=== PATIENT | female | born 1975 | race Caucasian/White ===

== ENCOUNTER 2021-04-22 17:28 | Inpatient (IN) | payer BC, SELFPAY ==
[~2021-04-22] VITALS: Ht 157.5 cm; Wt 97.1 kg
[2021-04-22 18:04] VITALS: BP 106/71
--- NOTE | 2021-04-22 18:17 | NUR ---
46 Y/O F BIBA FROM HOME, PT HAS BEEN HAVING COVID LIKE SYMPTOMS, SOB, N&V, BLOOD IN EMESIS, LOSS OF APPETITE, AND PRODUCTIVE COUGH. 1 WEEK EXPOSURE TO COVID. SKIN IS PINK/WARM/DRY; AAOX4 WITH EVEN AND STEADY GAIT; LUNGS WHEEZING BL; HR EVEN AND TACHY; PATIENT STATES PAIN OF 0/10 AT THIS TIME; PATIENT POSITIONED FOR COMFORT; HOB ELEVATED; BEDRAILS UP X2; BED DOWN. ER MD MADE AWARE OF PT STATUS. PMH: ASTHMA, OAB, HERNIATED DISK, ANEMIA LMP: 04/16/21 ALLERGY: DENIES MED: ALBUTEROL 2X NO RELIEF, SINGULAIR, TROSPIUM
--- NOTE | 2021-04-22 18:18 | NUR ---
ANAYA WAS SWABBED AND GIVEN TO LILY PHLEB
--- NOTE | 2021-04-22 18:22 | NUR ---
REPLACED NC AND TITRATED TO 5L
[2021-04-22] MEDS ORDERED: ONDANSETRON 4 MG/2 ML VIAL ONE ×2 (18:32→22:21)
[2021-04-22] MEDS ORDERED: ONDANSETRON 4 MG/2 ML VIAL IVP ONE ×2 (18:50→22:25)
[2021-04-22 20:16] LABS: HEMATOCRIT 35.4 % (36-48); HEMOGLOBIN 11.1 g/dL (12.0-16.0); MEAN CORPUSCULAR HEMOGLOBIN 22 pg (27-31); MEAN CORPUSCULAR HGB CONC 32 g/dL (33-37); MEAN CORPUSCULAR VOLUME 68.4 fL (80-94); PLATELET COUNT (AUTO) 470 K/uL (140-450); RED BLOOD CELL COUNT(AUTO) 5.17 MIL/uL (4.20-5.40); RED CELL DISTRIBUTION WIDTH 17.4 % (11.6-13.7); WHITE BLOOD COUNT (AUTO) 9.9 K/uL (4.8-10.8)
[2021-04-22 20:36] LABS: LYMPHOCYTES % (MANUAL) 6 % (20-46); MONOCYTES % (MANUAL) 3 % (5-12)
[2021-04-22] MEDS ORDERED: DEXAMETHASONE 10 MG/ML VIAL IVP ONE (20:45)
[2021-04-22 20:55] LABS: LACTATE DEHYDROGENASE 520 U/L (81-234)
[2021-04-22 21:13] LABS: C-REACTIVE PROTEIN QUANT 17.8 mg/dL (0.0-0.9)
[2021-04-22] MEDS ORDERED: DEXAMETHASONE 10 MG/ML VIAL ONE ×2 (21:47→22:20)
[2021-04-22] MEDS ORDERED: MORPHINE SULFATE 4 MG/ML SYR ONE (22:21)
[2021-04-22] MEDS ORDERED: MORPHINE SULFATE 4 MG/ML SYR IVP ONE (22:25)
--- NOTE | 2021-04-22 22:33 | NUR ---
up 6lpm n/c. satting well. NAD at this time. pt currently a/o x 4, gcs 15.
[2021-04-22 22:49] LABS: PROTHROMBIN TIME 10.2 secs (10.8-13.4)
[2021-04-22 22:50] LABS: ALBUMIN 3.1 g/dL (3.4-5.0); ANION GAP 11.9 (8-16); CARBON DIOXIDE 28.1 mmol/L (21-32); CREATININE 0.9 mg/dL (0.6-1.3); TOTAL BILIRUBIN 0.8 mg/dL (0.0-1.0)
--- NOTE | 2021-04-23 00:26 | NUR ---
NAD at this time. pt currently sitting on high fowlers position. currently on her phone.
--- NOTE | 2021-04-23 01:19 | NUR ---
provided pt with bedside lacho
--- NOTE | 2021-04-23 02:31 | NUR ---
changed pt diaper at this time. observed 02sats dropping to 88-89% on 6lpm n/c. will reevaluate for high 02 concentration
[2021-04-23] MEDS ORDERED: cefTRIAXone 1,000 MG VIAL ONE (05:33)
[2021-04-23] MEDS ORDERED: AZITHROMYCIN 500 MG INJ VIAL IV ONE (06:23)
[2021-04-23] MEDS: AZITHROMYCIN 250 MG in DEXTROSE 5% 250 ML IV SCH (06:36)
--- NOTE | 2021-04-23 06:36 | NUR ---
observed pt to have decreased o2 in 82-84%. placed pt on 10lpm n/c. up to 93-94% now.
--- NOTE | 2021-04-23 07:30 | NUR ---
REPORT RECEIVED FROM ERUM VARNER FOR CONTINUITY OF CARE. PT IS A&OX4. ON 10L NON REBREATHER O2 SATURATION 97%. SR ON MONITOR. IV SITE RT UPPER ARM 18G INFUSING NS AT 60ML/HR AND LT UPPER ARM 20G, SALINE LOCKED, INTACT, PATENT, GOOD BLOOD RETURN. SKIN INTACT, WARM AND DRY. SAFETY PRECAUTIONS IN PLACE. CALL LIGHT WITHIN REACH. WILL CONTINUE TO MONITOR.
[2021-04-23] MEDS ORDERED: MAG SULF 2000 MG/WATER PREMIX 50 ML IV PRN (08:40)
[2021-04-23] MEDS ORDERED: POTASSIUM CHLORIDE 10 MEQ TABER PO PRN (08:40)
[2021-04-23] MEDS ORDERED: ALBUTEROL HFA MDI 90 MCG/ACTUATION 8 GM INH PRN (08:40)
[2021-04-23] MEDS ORDERED: LORazepam 2 MG/ML VIAL IM/IVP PRN (08:50)
[2021-04-23] MEDS ORDERED: DOCUSATE SODIUM 100 MG GELCAP PO PRN (08:50)
[2021-04-23] MEDS ORDERED: ZOLPIDEM 5 MG TAB PO PRN (08:50)
--- NOTE | 2021-04-23 09:00 | NUR ---
PT REPROTS 11/22 PAIN. TYLENOL PRN GIVEN. DIAPER SOILED. CLEANED, CHANGED AND REPOSITIONED.
[2021-04-23] MEDS: NACL 0.9% 1,000 ML IV SCH ×2 (09:10→12:18)
[2021-04-23] MEDS: ZINC SULF 220 MG CAP PO SCH ×2 (09:11→21:36)
[2021-04-23] MEDS: VITAMIN D 400 IU TAB PO SCH (09:11)
[2021-04-23] MEDS: ASCORBIC ACID 500 MG TAB PO SCH (09:11)
[2021-04-23] MEDS: ACETAMINOPHEN 325 MG TAB PO PRN ×2 (09:37→21:36)
[2021-04-23 10:24] LABS: PROTHROMBIN TIME 10.1 secs (10.8-13.4)
[2021-04-23 10:35] LABS: CHOL/HDL RATIO 3.8 (1-4.5); THYROID STIMULATING HORMONE 0.64 uIU/mL (0.34-3.74)
--- NOTE | 2021-04-23 11:00 | NUR ---
Patient awake, appears to be resting comfortably in bed. Vital Signs within normal limits. Respirations even and unlabored. Will continue to monitor.
[2021-04-23] MEDS ORDERED: remdesivir COMMUNICATION ORDER 1 EA MISC MC PRN (12:30)
--- NOTE | 2021-04-23 12:30 | NUR ---
pt provided with lunch tray, eating at this time
[2021-04-23] MEDS ORDERED: remdesivir CLINICAL MONITORING 1 EA MISC MC PRN (13:50)
[2021-04-23] MEDS ORDERED: REMDESIVIR. 200 MG in NACL 0.9% 100 ML IV SCH (15:00)
--- NOTE | 2021-04-23 15:00 | NUR ---
Patient awake, appears to be resting comfortably in bed. Vital Signs within normal limits. Respirations even and unlabored. Will continue to monitor.
--- NOTE | 2021-04-23 17:27 | NUR ---
PATIENT HAS BEEN SCREENED AND CATEGORIZED HIGH NUTRITION RISK. PATIENT WILL BE SEEN WITHIN 1-2 DAYS OF ADMISSION. 04/23/21-04/24/[address]
--- NOTE | 2021-04-23 17:30 | NUR ---
pt provided with dinner tray, eating at this time
[2021-04-23] MEDS: PHENAZOPYRIDINE 100 MG TAB PO SCH ×2 (18:00→18:25)
--- NOTE | 2021-04-23 18:00 | NUR ---
pt desaturating 80%. placed on 15L non rebreather. RT called to bedside.
[2021-04-23 18:07] LABS: BASOPHILS % (AUTO) 0.3 % (0.0-2.0); HEMOGLOBIN 10.7 g/dL (12.0-16.0); LYMPHOCYTES # (AUTO) 0.5 K/uL (2.5-16.5); LYMPHOCYTES % (AUTO) 6.9 % (20.5-51.1); MEAN CORPUSCULAR HEMOGLOBIN 22 pg (27-31); MEAN CORPUSCULAR HGB CONC 31 g/dL (33-37); MEAN CORPUSCULAR VOLUME 68.4 fL (80-94); MONOCYTES # (AUTO) 0.5 K/uL (0.8-1.0); MONOCYTES % (AUTO) 6.1 % (1.7-9.3); NEUTROPHILS # (AUTO) 6.4 K/uL (1.8-7.7); NEUTROPHILS % (AUTO) 86.7 % (42.2-75.2); PLATELET COUNT (AUTO) 540 K/uL (140-450); RED BLOOD CELL COUNT(AUTO) 4.96 MIL/uL (4.20-5.40); RED CELL DISTRIBUTION WIDTH 17.3 % (11.6-13.7); WHITE BLOOD COUNT (AUTO) 7.4 K/uL (4.8-10.8)
[2021-04-23 18:28] LABS: ANION GAP 13.4 (8-16); CARBON DIOXIDE 25.2 mmol/L (21-32); CREATININE 0.7 mg/dL (0.6-1.3); POTASSIUM 3.6 mmol/L (3.5-5.1)
--- NOTE | 2021-04-23 18:40 | NUR ---
PT WAS PLACED ON NASAL CANNULA 15L, BY NIRALI MÉNDEZ
[2021-04-23] MEDS ORDERED: MONT10TA35 PO (19:07)
[2021-04-23] MEDS ORDERED: ALBU0.0912 IH (19:07)
[2021-04-23] MEDS ORDERED: TROS20TA5 PO (19:07)
--- NOTE | 2021-04-23 19:20 | NUR ---
Received report from Agustín VARNER for continuity of care
--- NOTE | 2021-04-23 19:20 | NUR ---
Pt report given to BLAKE RN. Transfer of care at this time.
--- NOTE | 2021-04-23 19:59 | NUR ---
provided pericare on patient. patient tolerated well.
--- NOTE | 2021-04-23 21:03 | NUR ---
patient complains of pain 06/24. ERMD made aware.
--- NOTE | 2021-04-24 | NUR ---
Patient appears to be resting comfortably in bed-- semi fowlers. Vital Signs within normal limits. Respirations even and unlabored. Safety measure are in place, Will continue to monitor patient. AAOx4, GCS 15
--- NOTE | 2021-04-24 01:10 | NUR ---
Patient will be admitted to care of Brooke. Admited to Telemetry. Will go to room 113. Belongings list completed. Report to Prateek VARNER.
--- NOTE | 2021-04-24 01:45 | NUR ---
provided pericare on patient. patient tolerated well. collected urine and sent to lab
[2021-04-24 02:06] LABS: APPEARANCE,URINE SL CLOUDY (CLEAR); BILIRUBIN,URINE 1+ (NEGATIVE); BLOOD, URINE NEGATIVE (NEGATIVE); COLOR,URINE DARK YELLOW (YELLOW); LEUKOCYTE ESTERASE ,URINE NEGATIVE (NEGATIVE); NITRITE, URINE NEGATIVE (NEGATIVE); UGLUCOSE NEGATIVE (NEGATIVE)
[2021-04-24 02:15] LABS: BARBITURATE, URINE NEGATIVE ng/ml (NEG <=200); BENZODIAZEPINE, URINE NEGATIVE ng/mL (NEG <=200); CANNABINOID, URINE NEGATIVE ng/mL (NEG <=50); COCAINE, URINE NEGATIVE ng/mL (NEG <=300); OPIATE, URINE POSITIVE ng/mL (NEG <=2000); PHENCYCLIDINE SCREEN,URINE NEGATIVE ng/mL (NEG <=25)
--- NOTE | 2021-04-24 02:40 | NUR ---
RECEIVED REPORT FROM ED NURSE, PT TRANSPORTED TO 113 VIA GURNEY. PT AAOX4 FOLLOWING COMMANDS. PT AMBULATORY, SOB WITH EXERTION. LUNGS DIMINISHED. SR ON MONITOR. 70S, PALPABLE PULSES TO PERIPHERAL EXTREMITIES. TRACE EDEMA NOTED. ABD SOFT NON DISTENDED. BS X4 QUADRANTS. PT USING BEDPAN @ THIS TIME, DUE TO SOB. SKIN INTACT. X2 PERIPHERAL IVS TO LAC AND RAC. IVF RUNNING. BED LOCKED IN LOWEST POSITION. SAFETY PRECAUTIONS IN PLACE. WILL CONTINUE TO OBSERVE.
--- NOTE | 2021-04-24 02:42 | NUR ---
PT WAS TRANSPORTED AND REMAINS ON 15LNC PT TOLERATED TRANSPORT WELL
--- NOTE | 2021-04-24 02:50 | NUR ---
MRSA SWAB DONE
[2021-04-24] MEDS ORDERED: cefTRIAXone 1,000 MG VIAL ONE (02:59)
[2021-04-24] MEDS ORDERED: AZITHROMYCIN 500 MG INJ VIAL IV ONE (03:00)
[2021-04-24] MEDS: AZITHROMYCIN 250 MG in DEXTROSE 5% 250 ML IV SCH (05:00)
--- NOTE | 2021-04-24 05:00 | NUR ---
PT REPOSITIONED FOR COMFORT. DENIES CP SOB @ THIS TIME. WILL CONTINUE TO OBSERVE
--- NOTE | 2021-04-24 07:30 | NUR ---
RECEIVED REPORT FROM [facility]. PT RESTING IN BED AWAKE, AOX4. STATED SHE FELT SLEEPY DUE TO NOT BEING ABLE TO SLEEP THE PAST 3 DAYS. IV WNL. BED AT LOWEST. CALL LIGHT AT REACH. OXI IN PLACE 10L SATING 97. WILL CONTINUE MONITORUING.
--- NOTE | 2021-04-24 07:46 | NUR ---
REPORT GIVEN TO DAY SHIFT FOR CONTINUITY OF CARE
[2021-04-24 07:57] LABS: BASOPHILS % (AUTO) 0.2 % (0.0-2.0); HEMATOCRIT 30.3 % (36-48); HEMOGLOBIN 9.5 g/dL (12.0-16.0); LYMPHOCYTES # (AUTO) 0.7 K/uL (2.5-16.5); LYMPHOCYTES % (AUTO) 6.5 % (20.5-51.1); MEAN CORPUSCULAR HEMOGLOBIN 21 pg (27-31); MEAN CORPUSCULAR HGB CONC 32 g/dL (33-37); MEAN CORPUSCULAR VOLUME 67.8 fL (80-94); MONOCYTES # (AUTO) 0.8 K/uL (0.8-1.0); NEUTROPHILS # (AUTO) 9.6 K/uL (1.8-7.7); NEUTROPHILS % (AUTO) 86.3 % (42.2-75.2); PLATELET COUNT (AUTO) 549 K/uL (140-450); RED BLOOD CELL COUNT(AUTO) 4.46 MIL/uL (4.20-5.40); RED CELL DISTRIBUTION WIDTH 17.1 % (11.6-13.7); WHITE BLOOD COUNT (AUTO) 11.1 K/uL (4.8-10.8)
[2021-04-24 08:41] LABS: ALBUMIN 2.4 g/dL (3.4-5.0); ANION GAP 17.5 (8-16); CARBON DIOXIDE 23.6 mmol/L (21-32); CREATININE 0.8 mg/dL (0.6-1.3); MAGNESIUM 2.1 mg/dL (1.8-2.4); PHOSPHORUS 2.9 mg/dL (2.5-4.9); POTASSIUM 3.1 mmol/L (3.5-5.1); TOTAL BILIRUBIN 0.4 mg/dL (0.0-1.0)
[2021-04-24 09:06] LABS: T4 (THYROXINE) 10.7 ug/dL (4.5-12.0)
[2021-04-24] MEDS: PHENAZOPYRIDINE 100 MG TAB PO SCH ×3 (09:19→17:28)
[2021-04-24] MEDS: VITAMIN D 400 IU TAB PO SCH (09:20)
[2021-04-24] MEDS: ASCORBIC ACID 500 MG TAB PO SCH (09:21)
[2021-04-24] MEDS: ZINC SULF 220 MG CAP PO SCH ×2 (09:22→20:29)
[2021-04-24] MEDS: ONDANSETRON 4 MG/2 ML VIAL IM/IVP PRN (12:32)
--- NOTE | 2021-04-24 14:40 | NUR ---
RECEIVED ON SUPPLEMENTAL OXYGEN AT 10 LPM VIA BUBBLE HUMIDIFIER TO NASAL CANNULA SATURATION 95% TITRATED FIO2 TO 8 LPM SIZE STAMPER TO NOTIFY RN
[2021-04-24] MEDS: REMDESIVIR. 100 MG in NACL 0.9% 100 ML IV SCH (15:00)
--- NOTE | 2021-04-24 15:26 | NUR ---
DC PLANNING: MOUNIKA SPOKE WITH ANANDA AT [facility] ([phone]), REFERENCE # [id number]. VERBAL REVIEW GIVEN, ANANDA STATES THAT [facility] WILL NOT TRANSFER PATIENT AT THIS TIME AND WILL SPEAK WITH CM AGAIN BY END OF WEEK. ALTERNATE CONTACT IS VERÓNICA [phone]. CM WILL FOLLOW FOR NEEDS.
--- NOTE | 2021-04-24 16:27 | NUR ---
04/24/21 RD INITIAL ASSESSMENT COMPLETED PLEASE REFER TO NUTRITION ASSESSMENT UNDER CARE ACTIVITY FOR ESTIMATED NUTRITIONAL NEEDS. 1. CONTINUE REGULAR DIET TOLERATED 2. RECOMMEND ENSURE CLEAR TID 3. ENCOURAGE PO INTAKE ABOVE 75% 3. RD TO FOLLOW-UP 3-5 DAYS, MODERATE RISK LES MARCUM, RD
[2021-04-24] MEDS: NACL 0.9% 1,000 ML IV SCH (17:41)
--- NOTE | 2021-04-24 17:45 | NUR ---
SATURATION 96% ON SUPPLEMENTAL OXYGEN AT 8 LPM VIA BUBBLE HUMIDIFIER TO NASAL CANNULA TITRATED FIO2 TO 6LPM CE/RN NOTIFIED
--- NOTE | 2021-04-24 17:56 | NUR ---
CALLED TO BEDSIDE FOR PRN MDI 2XPUFF ALB WERE GIVEN AND PT COUGHED PT DESAT TO MID 80s AND SLOWLY CLIMBED BACK UP PT B/S WERE CLR
--- NOTE | 2021-04-24 18:38 | NUR ---
PT HAD NO SIGNIFICANT CHANGES THROUGH SHIFT. PER RT PT WAS BROUGHT DOWN TO 6L. PT REMAINS AOX4. NO C/O PAIN OR DISCOMFORT THROUGH SHIFT. PT DID ASK FOR A BREATHING TREATMENT ALTHOUGH O2 WAS 96%. PT HAD VERY POOR APETITE. ALL MEDS WERE GIVEN. IV INTACT WNL. WILL ENDORSE REPORT TO PM RN.
--- NOTE | 2021-04-24 19:20 | NUR ---
RECD. RESTING IN BED, AWAKE, A/OX4, OBESE. RESPIRATION EVEN AND UNLABORED. ON 02 AT 6 LITERS VIA N/C, 02 SAT - 98%. WITH OCCASIONAL PRODUCTIVE COUGHING, MINIMAL TO MODERATE WHITE PHLEGM. IV OF NS INFUSING AT 60 ML/HR, RIGHT HAND G22. PATIENT IS INCONTINENT. SAFETY MEASURES ENFORCED. BED IN THE LOWEST POSITION, CALL LIGHT IN REACH. MEDICATIONS FOR THE NIGHT DISCUSSED WITH PATIENT. VERBALIZED UNDERSTANDING. DENIES PAIN 0/10.
--- NOTE | 2021-04-24 19:30 | NUR ---
Patient's Plan of Care was discussed and reviewed with AUTOMOBILE SERVICE STATION MECHANIC: ROBERTH MARTINEZ
[2021-04-24 20:00] VITALS: BP 128/65
--- NOTE | 2021-04-24 20:29 | NUR ---
SCHEDULED MEDICATIONS GIVEN. DIAPER CHANGED. NOTED SOB ON EXERTION DURING TURNING OR WHEN PT LIFTS BUTTOCKS.
[2021-04-24] MEDS: ENOXAPARIN 40 MG/0.4 ML SYR SUBQ SCH (20:30)
[2021-04-25] VITALS: BP 130/61
--- NOTE | 2021-04-25 00:10 | NUR ---
DIAPER CHANGED. WITH SOB ON EXERTION. NOTED 02 SAT DECREASED TO 85%. INFORMED RT ON DUTY, PT STILL ON 6 LITERS VIA N/C. WILL COME TO CHECK PATIENT.
--- NOTE | 2021-04-25 00:15 | NUR ---
INCREASED 02 TO 8 LITERS N/C, 02 SAT - INCREASED TO 88%, RT WILL COME AND CHECKED THE PATIENT.
--- NOTE | 2021-04-25 01:00 | NUR ---
CHECKED PATIENT, RESTING COMFORTABLY IN BED, 02 SAT - 99%. NO SOB NOTED.
--- NOTE | 2021-04-25 02:27 | NUR ---
TITRATED TO 7LNC SPO2 100% HR 92 5 MIN POST TITRATION W/ NO DISTRESS NOTED AT THIS TIME RN AWARE
--- NOTE | 2021-04-25 03:00 | NUR ---
CHANGED DIAPER, PATIENT STILL WITH SOB AFTER DIAPER CHANGED.
[2021-04-25 04:00] VITALS: BP 129/62
[2021-04-25] MEDS: ONDANSETRON 4 MG/2 ML VIAL IM/IVP PRN ×4 (04:54→23:42)
--- NOTE | 2021-04-25 05:00 | NUR ---
TITRATED TO 5LNC PT TOLERATING WELL SPO2 98% HR 100 5 MIN POST TITRATION
--- NOTE | 2021-04-25 06:00 | NUR ---
ABLE TO GET A DIAPER FROM PHYSICAL FITNESS TEACHER. CLEANSED AND CHANGED DIAPER. MADE COMFORTABLE IN BED WITH PILLOWS.
[2021-04-25 07:12] LABS: BASOPHILS % (AUTO) 0.3 % (0.0-2.0); HEMOGLOBIN 9.8 g/dL (12.0-16.0); LYMPHOCYTES # (AUTO) 0.8 K/uL (2.5-16.5); MEAN CORPUSCULAR HEMOGLOBIN 21 pg (27-31); MEAN CORPUSCULAR HGB CONC 31 g/dL (33-37); MEAN CORPUSCULAR VOLUME 68.5 fL (80-94); MONOCYTES # (AUTO) 0.8 K/uL (0.8-1.0); MONOCYTES % (AUTO) 6.8 % (1.7-9.3); NEUTROPHILS # (AUTO) 10.4 K/uL (1.8-7.7); PLATELET COUNT (AUTO) 662 K/uL (140-450); RED BLOOD CELL COUNT(AUTO) 4.68 MIL/uL (4.20-5.40); RED CELL DISTRIBUTION WIDTH 17.2 % (11.6-13.7); WHITE BLOOD COUNT (AUTO) 12.1 K/uL (4.8-10.8)
[2021-04-25 07:18] LABS: ALBUMIN 2.4 g/dL (3.4-5.0); ANION GAP 16.2 (8-16); CARBON DIOXIDE 23.3 mmol/L (21-32); CREATININE 0.8 mg/dL (0.6-1.3); MAGNESIUM 2.1 mg/dL (1.8-2.4); PHOSPHORUS 3.3 mg/dL (2.5-4.9); POTASSIUM 3.5 mmol/L (3.5-5.1); TOTAL BILIRUBIN 0.5 mg/dL (0.0-1.0)
--- NOTE | 2021-04-25 07:20 | NUR ---
CONDITION REMAIN STABLE. ALL NEEDS ATTENDED. ENDORSED TO AM SHIFT NURSE FOR CONTINUITY OF CARE.
--- NOTE | 2021-04-25 07:30 | NUR ---
RECEIVED BEDSIDE REPORT FROM INSURANCE RISK SURVEYOR NURSE FOR CONTINUITY OF CARE. PT IS AOX4, ABLE TO MAKE NEEDS KNOWN. RESTING IN BED, AWAKE, A/OX4, OBESE. RESPIRATION EVEN AND UNLABORED. ON AT 5 LITERS VIA N/C, 02 SAT - 95%. WITH OCCASIONAL PRODUCTIVE COUGHING. SKIN IS WARM, DRY, AND INTACT. IV OF NS INFUSING AT 60 ML/HR, RIGHT HAND G22. INTACT AND PATENT PATIENT IS INCONTINENT. PLAN OF CARE DISCUSSED. SAFETY MEASURES ENFORCED. BED IN THE LOWEST POSITION, CALL LIGHT IN REACH. WILL CONTINUE TO MONITOR.
[2021-04-25 07:48] LABS: NEUTROPHILS % (AUTO) 85.9 % (42.2-75.2)
[2021-04-25 08:00] VITALS: BP 145/68
[2021-04-25] MEDS ORDERED: COMMUNICATION ORDER MC SCH (09:00)
[2021-04-25] MEDS: PHENAZOPYRIDINE 100 MG TAB PO SCH ×3 (09:00→17:30)
[2021-04-25] MEDS: ZINC SULF 220 MG CAP PO SCH ×2 (09:06→22:02)
[2021-04-25] MEDS: ASCORBIC ACID 500 MG TAB PO SCH (09:06)
[2021-04-25] MEDS: VITAMIN D 400 IU TAB PO SCH (09:06)
[2021-04-25] MEDS: ENOXAPARIN 40 MG/0.4 ML SYR SUBQ SCH ×2 (09:26→22:11)
--- NOTE | 2021-04-25 09:30 | NUR ---
ALL SCHEDULED MEDICATIONS GIVEN. PT COMPLAINED OF NAUSEA. ADMINISTERED PRN ZOFRAN PER MD ORDERED.
--- NOTE | 2021-04-25 09:35 | NUR ---
PATIENT REFUSED TO TAKE PYRIDIUM. NOTIFIED MD AND IS AWARE OF THE SITUATION.
[2021-04-25] MEDS: NACL 0.9% 1,000 ML IV SCH (10:43)
--- NOTE | 2021-04-25 11:21 | NUR ---
DC PLANNING: CM SPOKE WITH PATIENTS THA BY PHONE. PATIENTS CELL PHONE NUMBER IS [phone]. PATIENT LIVES WITH SPOUSE AND SON IN A SINGLE STORY HOUSE, WAS INDEPENDENT WITH ALL ACTIVITIES PRIOR TO ADMISSION FOR COVID. NO HISTORY OF HOME HEALTH OF DME IN THE HOME. PATIENT IS CURRENTLY ON 5L O2 NC, CM SPOKE WITH RT TO ASK THEM FOR O2 SATS ON RA. MOUNIKA ALSO SPOKE WITH ANANDA, SECURITY SALES CONSULTANT FOR [employer] ([phone]), ANANDA WILL CALL BACK WITH NAMES OF COMPANIES TO SEND O2 ORDER TO. PATIENTS SPOUSE AND SON HAVE BEEN COVID TESTED AND VACCINATED, HOUSE IS BEING DEEP CLEANED AND SPOUSE IS AWARE OF COVID PRECAUTIONS ONCE PATIENT IS DISCHARGED. CM WILL FOLLOW UP ON HOME O2 AND WILL FOLLOW FOR NEEDS. Addendum: 04/25/21 at 1445 by Angela Beard CM DC PLANNING: INFORMATION FAXED TO [facility] [place], PHONE [phone], FAX [phone]. THEY STATE THEY CAN PROVIDE A 10 L CONCENTRATOR WITH SAME DAY DELIVERY OF O2 TO HOSPITAL. MOUNIKA ALSO SPOKE WITH THE ATTENDING MD DR. BUENO, PLAN IS FOR DC HOME WITH O2 IN AM. MOUNIKA WILL FOLLOW FOR NEEDS. Addendum: 04/26/21 at 0908 by Angela Beard DC PLANNING: MOUNIKA SPOKE WITH ROCKY AT [employer] ([phone]), STATES THAT CASE HASN'T BEEN REVIEWED. GAVE ROCKY THE INTAKE NUMBER AT [facility] ([phone]), ROCKY STATES SHE WILL FOLLOW UP AND THAT ALL NECESSARY INFORMATION IS THERE TO PROCEED. CM WILL CONTINUE TO FOLLOW. Addendum: 04/27/21 at 1320 by Angela Beard DC PLANNING: CM SPOKE WITH [employer], THEY STATE THAT THEY DELIVERED ALL O2 EQUIPMENT TO THE PATIENTS HOME. REVIEW GIVEN TO ANANDA OF [employer] , ENDORSED THAT PATIENT IS HAVING CT OF THE ABDOMEN TODAY RELATED TO N/V AND FINDINGS ON ABD US THAT ASKED FOR CT CORRELATION. LEFT FOR PATIENTS THA ASKING HIM TO CONFIRM THAT O2 WAS DELIVERED TO THE HOME AND TO CONFIRM THAT HE WILL BRING O2 TO THE HOSPITAL FOR PATIENT TO USE FOR TRANSPORT HOME. CM WILL FOLLOW FOR NEEDS.
--- NOTE | 2021-04-25 11:25 | NUR ---
PER DISCHARGE NURSE PLACED ON RA. PT SPO2 DROPPED TO 84% HR 92 FROM SPO2 91% HR 87 AT REST RETURNED TO 5L NC
--- NOTE | 2021-04-25 11:34 | NUR ---
CHECKED ON PATIENT. PATIENT IS STABLE. NO DISTRESS NOTED. WILL CONTINUE TO MONITOR.
[2021-04-25 12:00] VITALS: BP 142/64
--- NOTE | 2021-04-25 13:16 | NUR ---
PT COMPLAINED OF NAUSEA. ADMINISTERED PRN ZOFRAN PER MD ORDERED.
--- NOTE | 2021-04-25 13:45 | NUR ---
ASSISTED HOSPITALITY JOB TITLES WITH CHANGING PATIENT. PATIENT IS STABLE. DENIES PAIN AT THE MOMENT. WILL CONTINUE TO MONITOR.
--- NOTE | 2021-04-25 15:30 | NUR ---
CHECKED ON PATIENT. PATIENT IS STABLE. NO DISTRESS NOTED. WILL CONTINUE TO MONITOR.
[2021-04-25] MEDS: REMDESIVIR. 100 MG in NACL 0.9% 100 ML IV SCH (15:48)
[2021-04-25 16:00] VITALS: BP 135/77
--- NOTE | 2021-04-25 18:30 | NUR ---
ASSISTED DEPENDENCY DIRECTOR WITH CHANGING PATIENT. PATIENT IS STABLE. DENIES PAIN AT THE MOMENT. WILL CONTINUE TO MONITOR.
--- NOTE | 2021-04-25 19:30 | NUR ---
ENDORSED TO SINGLE WIRE SAW OPERATOR NURSE FOR CONTINUITY OF CARE. PT IS STABLE.
--- NOTE | 2021-04-25 19:31 | NUR ---
RECEIVED REPORT FROM AM NURSE. PATIENT IN BED RESTING WITH O2 VIA NC AT 5LPM TOLERATING WELL. NO SOB NOTED AT THIS TIME. IVF NS AT 60 ML/HR INFUSING ON THE RIGHT HAND. NO COMPLAINTS OF PAIN. ALL SAFETY MEASURES IN PLACE. CALL LIGHT WITHIN REACH.
[2021-04-25 20:00] VITALS: BP 145/78
[2021-04-25] MEDS: SANCTURA PO SCH (21:58)
--- NOTE | 2021-04-25 22:02 | NUR ---
ADMINISTERED SCHEDULED MEDS ORDERED.
--- NOTE | 2021-04-25 23:42 | NUR ---
PT COMPLAINED OF NAUSEA , ZOFRAN PRN GIVEN ORDERED.
--- NOTE | 2021-04-25 23:44 | NUR ---
ASSISTED CONTRACTOR FIELD HAULING IN CHANGING THE PATIENT.
--- NOTE | 2021-04-25 23:50 | NUR ---
CALLED TO BEDSIDE DUE TO PT DESATURATING AFTER BEING CHANGED. PT SPO2 NOT IMPROVING TITRATED O2 TO 7L AND CHANGE PROBE SITE. SPO2 IMPROVED TO 95%. RN NOTIFIED. WILL CONTINUE TO MONITOR PT.
[2021-04-26] VITALS: BP 149/86
[2021-04-26] MEDS: NACL 0.9% 1,000 ML IV SCH ×2 (03:55→21:39)
[2021-04-26 04:00] VITALS: BP 121/73
[2021-04-26 07:27] LABS: BASOPHILS # (AUTO) 0.1 K/uL (0.00-0.22); BASOPHILS % (AUTO) 0.4 % (0.0-2.0); HEMATOCRIT 31.3 % (36-48); LYMPHOCYTES # (AUTO) 1.5 K/uL (2.5-16.5); LYMPHOCYTES % (AUTO) 10.3 % (20.5-51.1); MEAN CORPUSCULAR HEMOGLOBIN 22 pg (27-31); MEAN CORPUSCULAR HGB CONC 32 g/dL (33-37); MEAN CORPUSCULAR VOLUME 67.8 fL (80-94); MONOCYTES # (AUTO) 0.8 K/uL (0.8-1.0); MONOCYTES % (AUTO) 5.7 % (1.7-9.3); NEUTROPHILS # (AUTO) 11.9 K/uL (1.8-7.7); NEUTROPHILS % (AUTO) 83.6 % (42.2-75.2); PLATELET COUNT (AUTO) 667 K/uL (140-450); RED BLOOD CELL COUNT(AUTO) 4.62 MIL/uL (4.20-5.40); RED CELL DISTRIBUTION WIDTH 17.1 % (11.6-13.7); WHITE BLOOD COUNT (AUTO) 14.2 K/uL (4.8-10.8)
--- NOTE | 2021-04-26 07:45 | NUR ---
ENDORSED TO AM NURSE FOR CONTINUITY OF CARE. PATIENT IS STABLE.
[2021-04-26 07:46] LABS: ALBUMIN 2.4 g/dL (3.4-5.0); ANION GAP 14.7 (8-16); CARBON DIOXIDE 23.6 mmol/L (21-32); CREATININE 0.7 mg/dL (0.6-1.3); PHOSPHORUS 3.4 mg/dL (2.5-4.9); POTASSIUM 3.3 mmol/L (3.5-5.1); TOTAL BILIRUBIN 0.6 mg/dL (0.0-1.0)
[2021-04-26 08:00] VITALS: BP 127/62
--- NOTE | 2021-04-26 08:06 | NUR ---
RECEIVED REPORT FROM PM RN. PT RESTING IN BED, AWAKE, A0X4. PT REMAIN ON 7L NC WITH NO C/O SOB AT THIS TIME. IV WNL RUNNING NS @ 60. PT HAS NO COMPLAINTS AT THIS TIME. BED AT LOWEST, CALL LIGHT AT REACH. WILL CONT MONITORING.
[2021-04-26 08:08] LABS: MAGNESIUM 1.9 mg/dL (1.8-2.4)
[2021-04-26] MEDS ORDERED: AZITHROMYCIN 250 MG TAB PO SCH (09:00)
[2021-04-26] MEDS: SANCTURA PO SCH ×2 (09:48→21:30)
[2021-04-26] MEDS: VITAMIN D 400 IU TAB PO SCH (09:48)
[2021-04-26] MEDS: ASCORBIC ACID 500 MG TAB PO SCH (09:49)
[2021-04-26] MEDS: ZINC SULF 220 MG CAP PO SCH ×2 (09:49→21:30)
[2021-04-26] MEDS: ACETAMINOPHEN 325 MG TAB PO PRN (09:51)
[2021-04-26] MEDS: ENOXAPARIN 40 MG/0.4 ML SYR SUBQ SCH ×2 (09:51→21:29)
--- NOTE | 2021-04-26 10:05 | NUR ---
ALL MORNING MEDS GIVEN. PT WAS C/O BACK PAIN AND NAUSEA. PT WAS GIVEN PRN ZOFRAN AND TYLENOL. PT REMAINS ON 7L NC, SATING 100%. NO C/O SOB.
--- NOTE | 2021-04-26 11:29 | NUR ---
PT STABLE SAT 100% ON 7L NC. TITRATED FIO2 TO 5L. PT STABLE WITH NO SOB
[2021-04-26 12:00] VITALS: BP 128/69
[2021-04-26] MEDS: REMDESIVIR. 100 MG in NACL 0.9% 100 ML IV SCH (14:57)
--- NOTE | 2021-04-26 15:16 | NUR ---
PT REFUSED CONTRAST STATED HAS HAD IT BEFORE AND HER STOMACH IS VERY SENSITIVE TO IT, WOULD RATHER NOT HAVE IT. STATED ITS OKAY TO ONLY DO CT WITHOUT CONTRAST.
[2021-04-26 18:02] VITALS: BP 128/69
--- NOTE | 2021-04-26 18:40 | NUR ---
PT REMAINED STABLE THROUGH SHIFT. NO SIGNIFFICANT CHANGES OCCURED DURING SHIFT. PT REMAINS ON 7LNC SATING 96%> PT IV STILL WNL. PT STATES HAVING POOR APETITE BUT TRYING TO EAT. ALL VS STABLE. WILL ENDORSE REPORT TO PM RN.
--- NOTE | 2021-04-26 19:27 | NUR ---
RECEIVED REPORT FROM AM RN. PATIENT IS STABLE. NO ACUTE DISTRESS NOTED.
--- NOTE | 2021-04-26 21:30 | NUR ---
MEDICATIONS GIVEN ORDERED.
--- NOTE | 2021-04-26 22:25 | NUR ---
ASSISTED EARLY CHILDHOOD SPECIAL EDUCATOR IN CHANGING THE PATIENT.
[2021-04-27] VITALS: BP 135/75
[2021-04-27 04:00] VITALS: BP 122/74
[2021-04-27] MEDS: ONDANSETRON 4 MG/2 ML VIAL IM/IVP PRN ×2 (04:45→09:55)
[2021-04-27] MEDS: ACETAMINOPHEN 325 MG TAB PO PRN ×2 (04:46→11:47)
[2021-04-27 07:01] LABS: BASOPHILS % (AUTO) 0.2 % (0.0-2.0); EOSINOPHILS % (AUTO) 0.1 % (0.0-4.0); HEMATOCRIT 31.2 % (36-48); HEMOGLOBIN 9.7 g/dL (12.0-16.0); LYMPHOCYTES # (AUTO) 1.1 K/uL (2.5-16.5); LYMPHOCYTES % (AUTO) 8.6 % (20.5-51.1); MEAN CORPUSCULAR HEMOGLOBIN 21 pg (27-31); MEAN CORPUSCULAR HGB CONC 31 g/dL (33-37); MEAN CORPUSCULAR VOLUME 68.4 fL (80-94); MONOCYTES # (AUTO) 0.8 K/uL (0.8-1.0); MONOCYTES % (AUTO) 6.1 % (1.7-9.3); NEUTROPHILS # (AUTO) 10.6 K/uL (1.8-7.7); PLATELET COUNT (AUTO) 659 K/uL (140-450); RED BLOOD CELL COUNT(AUTO) 4.56 MIL/uL (4.20-5.40); RED CELL DISTRIBUTION WIDTH 17.3 % (11.6-13.7); WHITE BLOOD COUNT (AUTO) 12.4 K/uL (4.8-10.8)
[2021-04-27 07:19] LABS: ALBUMIN 2.3 g/dL (3.4-5.0); ANION GAP 11.5 (8-16); CARBON DIOXIDE 25.6 mmol/L (21-32); CREATININE 0.7 mg/dL (0.6-1.3); PHOSPHORUS 3.4 mg/dL (2.5-4.9); POTASSIUM 3.1 mmol/L (3.5-5.1); TOTAL BILIRUBIN 0.6 mg/dL (0.0-1.0)
--- NOTE | 2021-04-27 07:45 | NUR ---
NURSE REPORT Report obtained from night nurse Natalie and this nurse assumed care of patient. Received patient asleep withoutany sxs of pain or discomfort. VSS. Afeb.
[2021-04-27 08:00] VITALS: BP 129/66
--- NOTE | 2021-04-27 08:21 | NUR ---
SATURATION 98% ON BUBBLED SUPPLEMENTAL OXYGEN AT 4 LP VIA NC POST MDI PRN THERAPY TITRATED FIO2 TO 2 LPM JERONIMO/GARDENIA NOTIFIED
[2021-04-27] MEDS: ZINC SULF 220 MG CAP PO SCH (09:49)
[2021-04-27] MEDS: ASCORBIC ACID 500 MG TAB PO SCH (09:49)
[2021-04-27] MEDS: VITAMIN D 400 IU TAB PO SCH (09:49)
[2021-04-27] MEDS: SANCTURA PO SCH (09:51)
[2021-04-27] MEDS: ENOXAPARIN 40 MG/0.4 ML SYR SUBQ SCH (09:52)
[2021-04-27 12:00] VITALS: BP 114/68
[2021-04-27] MEDS: NACL 0.9% 1,000 ML IV SCH (12:50)
--- NOTE | 2021-04-27 13:00 | NUR ---
NURSE CARE AT 1200 VSS. AFEB. PATIENT HAD CALLED AND SAID THAT HIS IS SUPPOSED TO GET DISCHARGE. PATIENT HAS BEEN INCONTINENT OF URINE AND DIAPER CHANGED. HAS OWN DIAPERS IN ROOM.
[2021-04-27] MEDS ORDERED: DEC1 PO (13:07)
[2021-04-27] MEDS ORDERED: ASPI325T99 PO (13:07)
[2021-04-27] MEDS ORDERED: CEPH250C16 PO (13:07)
[2021-04-27] MEDS ORDERED: AZIT250T3 PO (13:07)
[2021-04-27] MEDS ORDERED: POTA10TE30 PO (13:10)
[2021-04-27 13:58] VITALS: BP 114/68
[2021-04-27] MEDS: REMDESIVIR. 100 MG in NACL 0.9% 100 ML IV SCH (14:15)
--- NOTE | 2021-04-27 15:15 | NUR ---
DISCHARGE NURSES NOTE Patient given discharge instructions and verbalized understanding. Tele removed. IV dc'd and patient had 3 SL. All removed with catheter intact. Patient signed d/c instruction form. in and assisted out of bed and taken to care via w/c with O2 at 5 l/min per nasal canulla. Home O2 at 5 l/min connected to patient.
--- NOTE | 2021-04-27 15:15 | NUR ---
NURSE DISCHARGE WHEN PATIENT WAS TRANSFERRED FROM BED TO WHEELCHAIR, SHE REQUESTED TO HAVE O2 INCREASED DUE TO SHORTNESS OF BREATHE. UP TO 5 L/MIN PER PATIENT REQUEST. THEN WHEN O2 TRANSFERRED TO PATIENT HOME O2, PUT O2 AT 5L/MIN ALSO
== END 2021-04-27 15:28 | disposition home or self-care (01) | DRG 177 ==
LOC: MED 17:28 → MTU 23:24
PROC: XW033E5 Introduction of Remdesivir Anti-infective into Peripheral Vein, Percutaneous Approach, New Technology Group 5 (ICD-10-PCS; principal; 2021-04-23)
DX: U07.1 COVID-19 (principal); J12.82 Pneumonia due to coronavirus disease 2019; J96.01 Acute respiratory failure with hypoxia; E43 Unspecified severe protein-calorie malnutrition; D68.59 Other primary thrombophilia; J45.909 Unspecified asthma, uncomplicated; E87.6 Hypokalemia; E66.9 Obesity, unspecified; D64.9 Anemia, unspecified; M51.26 Other intervertebral disc displacement, lumbar region; N32.81 Overactive bladder; E83.51 Hypocalcemia; E86.0 Dehydration; Z90.49 Acquired absence of other specified parts of digestive tract; Z68.39 Body mass index [BMI] 39.0-39.9, adult
CPT/HCPCS: 36415; 71045; 74018; 80048; 80053; 80305; 81003; 82550; 82728; 83036; 83605; 83615; 83690; 83735; 83880; 84100; 84134; 84436; 84443; 84484; 85025; 85379; 85384; 85610; 85651; 85730; 86140; 87040; 87081; 87086; 93005; 96374; 96375; 99285; J0456; J0696; J1100; J1644; J1650; J2060; J2270; J2405; J7060